=== PATIENT | male | born 1945 | race Caucasian/White ===

== ENCOUNTER 2020-11-27 10:00 | Inpatient (IN) ==
[~2020-11-27 10:00] MED LIST: ASPIRIN 325 MG TABLET PO ONE; DIAZEPAM 5 MG TABLET PO ONE; MAGNESIUM SULF RIDER 2 GM/50 ML PREMIX IV PRN; POTASSIUM CHLORIDE RIDER 10 MEQ/100 ML PREMIX IV PRN; diphenhydrAMINE CAP 25 MG CAPSULE PO ONE
[2020-11-27 10:46] LABS: PT Patient Result 11.4 SECS (10.5-12.0)
[2020-11-27 10:50] LABS: Albumin 3.6 G/DL (3.4-5.0); Bilirubin,Total 0.5 MG/DL (0.20-1.00); Calcium 8.9 MG/DL (8.5-10.1); Osmolality,Calculated 281.4 MOS/KG (273-304); Potassium 4.3 MMOL/L (3.5-5.1); Total Protein 7.8 G/DL (6.4-8.2)
[2020-11-27] MEDS ORDERED: diphenhydrAMINE CAP 25 MG CAPSULE ONE (11:00)
[2020-11-27] MEDS ORDERED: DIAZEPAM 5 MG TABLET ONE (11:00)
[2020-11-27] MEDS ORDERED: ASPIRIN 325 MG TABLET ONE (11:01)
[2020-11-27] MEDS: SODIUM CHLORIDE 0.9% 1,000 ML IV SCH ×2 (11:09→19:35)
[2020-11-27] MEDS ORDERED: HEPARIN/NACL 0.9% 2 UNITS/ML 3,000 UNIT/1,500 ML BAG IV ONE (11:27)
[2020-11-27] MEDS ORDERED: LIDOCAINE 1% 20 ML VIAL ONE (11:27)
[2020-11-27] MEDS ORDERED: fentaNYL 100 MCG/2 ML VIAL ONE (12:07)
[2020-11-27] MEDS ORDERED: MIDAZOLAM 2 MG/2 ML VIAL ONE (12:07)
[2020-11-27] MEDS ORDERED: DEXTROSE 50% 25 GM/50 ML VIAL IV PRN (12:58)
[2020-11-27] MEDS ORDERED: GLUCAGON 1 MG VIAL IM PRN (12:58)
[2020-11-27] MEDS: DICLOFENAC SODIUM 75 MG TABLET PO SCH (21:43)
[2020-11-27] MEDS: SERTRALINE 50 MG TABLET PO SCH (21:44)
[2020-11-28 07:01] LABS: Basophils % 0.4 % (0.0-0.8); Eosinophils # 0.2 10*3/uL (0.0-0.87); Eosinophils % 3.1 % (0.00-10.9); Hematocrit 39.3 VOL% (42.0-52.0); Hemoglobin 12.1 GM/DL (14.0-18.0); Immature Granulocytes % 0.3 %; Immature Granulocytes Absolute 0.02 #; Lymphocytes # 1.2 10*3/uL (1.4-4.0); Lymphocytes % 16.9 % (21.2-54.2); Mean Corpuscular HGB Conc 30.8 GM/DL (32-36); Mean Corpuscular Volume 94.9 FL (87-102); Mean Platelet Volume 10.6 FL (9.6-12.0); Monocytes % 7.8 % (1.7-12.7); Neutrophils % 71.5 % (38.7-73.9); Platelet Count 183 T/CUMM (130-400); Red Blood Count 4.14 MC/CUMM (3.8-5.5); Red Cell Distribution Width 15.9 % (9.3-17.3); White Blood Count 7.2 T/CUMM (4-12)
[2020-11-28 07:32] LABS: Calcium 8.2 MG/DL (8.5-10.1); Osmolality,Calculated 282.3 MOS/KG (273-304); Potassium 4.4 MMOL/L (3.5-5.1)
[2020-11-28] MEDS: METOPROLOL SUCCINATE XL 50 MG TABLET PO SCH (08:44)
[2020-11-28] MEDS: DICLOFENAC SODIUM 75 MG TABLET PO SCH ×2 (08:44→20:07)
[2020-11-28] MEDS: FUROSEMIDE 40 MG/4 ML VIAL IV SCH ×2 (08:45→16:42)
[2020-11-28] MEDS ORDERED: GLUCAGON 1 MG VIAL IM PRN (09:05)
[2020-11-28] MEDS ORDERED: DEXTROSE 50% 25 GM/50 ML VIAL IV PRN (09:05)
[2020-11-28] MEDS ORDERED: SODIUM CHLORIDE 0.9% 1,000 ML IV SCH (09:30)
[2020-11-28] MEDS: SODIUM CHLORIDE 0.9% 1,000 ML IV SCH (11:15)
[2020-11-28] MEDS: ASPIRIN EC 81 MG TABLET PO SCH (20:07)
[2020-11-28] MEDS: SERTRALINE 50 MG TABLET PO SCH (20:07)
[2020-11-28] MEDS: ATORVASTATIN 20 MG TABLET PO SCH (20:07)
[2020-11-28] MEDS: CHLORHEXIDINE 0.12% ORAL RINSE 60 ML BOTTLE SWISH/SPIT SCH (20:08)
[2020-11-29 04:54] LABS: ABG Base Excess 1.7 MMOL/L (-2.5-2.5); ABG HCO3 25.9 MMOL/L (20-26); ABG PCO2 38.7 MM HG (35-48); ABG PH 7.434 (7.35-7.45); ABG PO2 98.6 MM HG (80-95); ABG TCO2 22.9 MMOL/L (23-27)
[2020-11-29 05:24] LABS: Basophils % 0.5 % (0.0-0.8); Eosinophils # 0.3 10*3/uL (0.0-0.87); Eosinophils % 3.1 % (0.00-10.9); Hematocrit 39.5 VOL% (42.0-52.0); Immature Granulocytes % 0.4 %; Immature Granulocytes Absolute 0.03 #; Lymphocytes # 1.1 10*3/uL (1.4-4.0); Lymphocytes % 13.8 % (21.2-54.2); Mean Corpuscular HGB Conc 30.4 GM/DL (32-36); Mean Platelet Volume 10.8 FL (9.6-12.0); Neutrophils % 74.2 % (38.7-73.9); Platelet Count 183 T/CUMM (130-400); Red Cell Distribution Width 15.9 % (9.3-17.3); White Blood Count 8.3 T/CUMM (4-12)
[2020-11-29 05:50] LABS: Albumin 3.1 G/DL (3.4-5.0); Bilirubin,Total 0.7 MG/DL (0.20-1.00); Calcium 8.5 MG/DL (8.5-10.1); Potassium 5.5 MMOL/L (3.5-5.1); Total Protein 6.8 G/DL (6.4-8.2)
[2020-11-29] MEDS: DICLOFENAC SODIUM 75 MG TABLET PO SCH ×2 (08:30→20:32)
[2020-11-29] MEDS: CHLORHEXIDINE 0.12% ORAL RINSE 60 ML BOTTLE SWISH/SPIT SCH ×2 (08:30→20:34)
[2020-11-29] MEDS: FUROSEMIDE 40 MG/4 ML VIAL IV SCH ×2 (08:30→16:15)
[2020-11-29] MEDS: METOPROLOL SUCCINATE XL 50 MG TABLET PO SCH (08:30)
[2020-11-29] MEDS ORDERED: SODIUM POLYSTYRENE SULFATE 15 GM/60 ML BOTTLE PO STA (09:01)
[2020-11-29] MEDS: SERTRALINE 50 MG TABLET PO SCH (20:31)
[2020-11-29] MEDS: ATORVASTATIN 20 MG TABLET PO SCH (20:31)
[2020-11-29] MEDS: ASPIRIN EC 81 MG TABLET PO SCH (20:32)
[2020-11-30 06:25] LABS: Calcium 8.4 MG/DL (8.5-10.1); Osmolality,Calculated 282.5 MOS/KG (273-304); Potassium 3.8 MMOL/L (3.5-5.1)
[2020-11-30] MEDS: FUROSEMIDE 40 MG/4 ML VIAL IV SCH ×2 (08:11→17:30)
[2020-11-30] MEDS: CHLORHEXIDINE 0.12% ORAL RINSE 60 ML BOTTLE SWISH/SPIT SCH ×2 (08:11→21:13)
[2020-11-30] MEDS: METOPROLOL SUCCINATE XL 50 MG TABLET PO SCH (08:11)
[2020-11-30] MEDS: DICLOFENAC SODIUM 75 MG TABLET PO SCH ×2 (08:11→21:16)
[2020-11-30] MEDS ORDERED: CEFUROXIME INJ 1,500 MG in SODIUM CHLORIDE 0.9% 100 ML IV ONE (09:05)
[2020-11-30] MEDS ORDERED: DIAZEPAM 5 MG TABLET PO ONE (10:03)
[2020-11-30] MEDS ORDERED: PANTOPRAZOLE 40 MG TABLET PO ONE (10:03)
[2020-11-30] MEDS: CHLORHEXIDINE 4% SOLN 118 ML BOTTLE TOP SCH ×2 (15:15→21:14)
[2020-11-30] MEDS: SERTRALINE 50 MG TABLET PO SCH (21:12)
[2020-11-30] MEDS: ATORVASTATIN 20 MG TABLET PO SCH (21:12)
[2020-11-30] MEDS: ASPIRIN EC 81 MG TABLET PO SCH (21:12)
[2020-12-01] MEDS ORDERED: PAPAVERINE 60 MG/2 ML VIAL ONE (05:27)
[2020-12-01] MEDS ORDERED: VANCOMYCIN 1,000 MG VIAL ONE ×2 (05:27→07:32)
[2020-12-01] MEDS ORDERED: VANCOMYCIN 500 MG VIAL ONE (05:27)
[2020-12-01] MEDS ORDERED: HEPARIN/NACL 0.9% 2 UNITS/ML 1,000 UNIT/500 ML BAG IV ONE (06:00)
[2020-12-01] MEDS ORDERED: ETOMIDATE 40 MG/20 ML VIAL IV ONE (06:00)
[2020-12-01] MEDS ORDERED: CEFUROXIME INJ 1,500 MG in SODIUM CHLORIDE 0.9% 100 ML IV ONE ×2 (06:00→08:00)
[2020-12-01] MEDS ORDERED: SODIUM CHLORIDE 0.9% 1,000 ML IV ONE (06:00)
[2020-12-01] MEDS ORDERED: MINERAL OIL/PETROLATUM OPH OINT 3.5 GM TUBE ONE (06:00)
[2020-12-01] MEDS ORDERED: PANTOPRAZOLE 40 MG TABLET PO ONE (06:00)
[2020-12-01] MEDS ORDERED: SODIUM CHLORIDE 0.9% 250 ML IV ONE (06:00)
[2020-12-01] MEDS ORDERED: AMINOCAPROIC ACID 5,000 MG/20 ML VIAL ONE (06:00)
[2020-12-01] MEDS ORDERED: DIAZEPAM 5 MG TABLET PO ONE (06:00)
[2020-12-01] MEDS ORDERED: LIDOCAINE 2% 5 ML VIAL ONE ×2 (06:00→10:47)
[2020-12-01] MEDS ORDERED: SEVOFLURANE 1 UNIT/15 MINUTE INH ONE (06:04)
[2020-12-01 06:06] LABS: Calcium 8.6 MG/DL (8.5-10.1); Osmolality,Calculated 284.4 MOS/KG (273-304); Potassium 3.6 MMOL/L (3.5-5.1)
[2020-12-01] MEDS ORDERED: SUFentanil 250 MCG/5 ML AMP ONE ×2 (06:06→08:03)
[2020-12-01] MEDS ORDERED: CALCIUM CHLORIDE 1,000 MG/10 ML VIAL IV ONE ×2 (06:07→10:55)
[2020-12-01] MEDS ORDERED: FAMOTIDINE 20 MG/2 ML VIAL IV ONE (06:13)
[2020-12-01 07:47] LABS: ABG Oxygen Saturation 99.6 % (95-100); ABG PCO2 39.6 MM HG (35-48); ABG PH 7.458 (7.35-7.45); ABG TCO2 23.8 MMOL/L (23-27); Glucose Heart Surgery 114 MG/DL (74-106); Hematocrit Heart Surgery 44.9 PERCENT (42-52); Hemoglobin Heart Surgery 14.6 G/DL (14.0-18.0); Ionized Calcium Arterial 1.11 MMOL/L (1.21-1.46); PCO2 Patient Temp Arterial 39.6 MMHG; PH Patient Temp Arterial 7.458; Patient Temperature 37 CELCIUS; Potassium Heart/CVR 3.5 MMOL/L (3.5-5.1); Sodium Heart/CVR 141 MMOL/L (135-145)
[2020-12-01 07:59] LABS: Bilirubin,Urine Negative (Negative); Blood, Urine Negative (Negative); Glucose,Urine (UA) Negative (Negative); Hyaline Casts,Urine 1 /LPF (0-3); Ketones,Urine Negative (Negative); Mucus,Urine Occasional /LPF (Occasional); Nitrite,Urine Negative (Negative); Protein,Urine Negative; RBC,Urine 2 /HPF (0-4); Squamous Epithelial Cell,Urine Occasional /HPF (0-10); Urine Appearance CLEAR (Clear); Urine Color Yellow (Yellow); Urine Specific Gravity 1.014 (1.001-1.035); Urine Urobilinogen < 2.0 EU/DL (0.2-1.0)
[2020-12-01] MEDS: FUROSEMIDE 40 MG/4 ML VIAL IV SCH (08:00)
[2020-12-01] MEDS ORDERED: SODIUM BICARBONATE 50 MEQ/50 ML VIAL IV ONE ×2 (08:29→10:48)
[2020-12-01] MEDS ORDERED: CALCIUM CHLORIDE 1,000 MG/10 ML SYRINGE IV ONE (08:30)
[2020-12-01] MEDS ORDERED: POTASSIUM CHLORIDE RIDER 20 MEQ/100 ML PREMIX IV ONE (08:30)
[2020-12-01] MEDS ORDERED: PHENYLEPHRINE DRIP 0 MG/0 ML PREMIX IV ONE (08:30)
[2020-12-01] MEDS ORDERED: NITROPRUSSIDE 50 MG/2 ML VIAL ONE (08:30)
[2020-12-01] MEDS ORDERED: propofoL 200 MG/20 ML VIAL IV ONE (08:37)
[2020-12-01] MEDS: METOPROLOL SUCCINATE XL 50 MG TABLET PO SCH (09:03)
[2020-12-01] MEDS: CHLORHEXIDINE 4% SOLN 118 ML BOTTLE TOP SCH (09:03)
[2020-12-01] MEDS: DICLOFENAC SODIUM 75 MG TABLET PO SCH (09:03)
[2020-12-01] MEDS: CHLORHEXIDINE 0.12% ORAL RINSE 60 ML BOTTLE SWISH/SPIT SCH ×2 (09:03→21:55)
[2020-12-01 09:04] LABS: Hematocrit Heart Surgery 27.7 PERCENT (42-52); Hemoglobin Heart Surgery 8.9 G/DL (14.0-18.0); PCO2 Patient Temp Venous 37.9 MM HG; PH Patient Temp Venous 7.472; PO2 Patient Temp Venous 46.3 MM HG; Potassium Heart/CVR 3.9 MMOL/L (3.5-5.1); VBG Base Excess 4.1 MEQ/L (0-4); VBG HCO3 27.8 MEQ/L (24-28); VBG Oxygen Saturation 83.2 %; VBG PCO2 41.7 MMHG (41-51); VBG PH 7.443; VBG Total CO2 26.3 MMOL/L
[2020-12-01 09:49] LABS: Hematocrit Heart Surgery 28.6 PERCENT (42-52); Hemoglobin Heart Surgery 9.2 G/DL (14.0-18.0); PCO2 Patient Temp Venous 27.8 MM HG; PH Patient Temp Venous 7.573; PO2 Patient Temp Venous 30.9 MM HG; Potassium Heart/CVR 3.9 MMOL/L (3.5-5.1); VBG Base Excess 4.3 MEQ/L (0-4); VBG HCO3 28.1 MEQ/L (24-28); VBG Oxygen Saturation 81.9 %; VBG PCO2 39.1 MMHG (41-51); VBG PH 7.468; VBG PO2 49.9 MMHG (17-40)
[2020-12-01] MEDS ORDERED: diphenhydrAMINE 50 MG/1 ML VIAL ONE (09:49)
[2020-12-01 10:19] LABS: Hemoglobin Heart Surgery 9.4 G/DL (14.0-18.0); PCO2 Patient Temp Venous 36.1 MM HG; PH Patient Temp Venous 7.492; PO2 Patient Temp Venous 39.7 MM HG; Potassium Heart/CVR 4.7 MMOL/L (3.5-5.1); VBG Base Excess 4.3 MEQ/L (0-4); VBG HCO3 27.8 MEQ/L (24-28); VBG Oxygen Saturation 69.8 %; VBG PCO2 36.1 MMHG (41-51); VBG PH 7.492; VBG PO2 39.7 MMHG (17-40); VBG Total CO2 25.4 MMOL/L
[2020-12-01] MEDS ORDERED: DEXTROSE 5% KCL 20 MEQ 20 MEQ/1,000 ML BAG IV ONE (10:47)
[2020-12-01] MEDS ORDERED: MAGNESIUM SULFATE 5 GM/10 ML VIAL IV ONE (10:47)
[2020-12-01] MEDS ORDERED: ALBUMIN 25% 25 GM/100 ML VIAL IV ONE (10:47)
[2020-12-01] MEDS ORDERED: methylPREDNISolone SOD SUC 1,000 MG/8 ML VIAL ONE (10:47)
[2020-12-01] MEDS ORDERED: MANNITOL 100 GM/500 ML BAG IV ONE (10:47)
[2020-12-01] MEDS ORDERED: POTASSIUM CHLORIDE 20 MEQ/10 ML VIAL ONE (10:48)
[2020-12-01] MEDS ORDERED: PROTAMINE SULFATE 50 MG/5 ML VIAL IV ONE ×2 (10:48→12:25)
[2020-12-01] MEDS ORDERED: HEPARIN 10,000 UNIT/10 ML VIAL ONE (10:48)
[2020-12-01] MEDS ORDERED: PROTAMINE SULFATE 250 MG/25 ML VIAL IV ONE (10:48)
[2020-12-01] MEDS ORDERED: FUROSEMIDE 20 MG/2 ML VIAL ONE (10:48)
[2020-12-01 10:57] LABS: ABG Base Excess 1.5 MMOL/L (-2.5-2.5); ABG HCO3 25.8 MMOL/L (20-26); ABG Oxygen Saturation 99.5 % (95-100); ABG PCO2 38.8 MM HG (35-48); ABG TCO2 23.5 MMOL/L (23-27); Glucose Heart Surgery 175 MG/DL (74-106); Hematocrit Heart Surgery 29.8 PERCENT (42-52); Hemoglobin Heart Surgery 9.6 G/DL (14.0-18.0); Ionized Calcium Arterial 1.24 MMOL/L (1.21-1.46); PCO2 Patient Temp Arterial 38.8 MMHG; Patient Temperature 37 CELCIUS; Potassium Heart/CVR 3.8 MMOL/L (3.5-5.1); Sodium Heart/CVR 136 MMOL/L (135-145)
[2020-12-01] MEDS ORDERED: PHENYLEPHRINE DRIP 40 MG/250 ML PREMIX IV ONE (11:20)
[2020-12-01] MEDS ORDERED: INSULIN REGULAR 100 UNIT/ML IV ONE (11:47)
[2020-12-01] MEDS ORDERED: DEXTROSE 50% 25 GM/50 ML VIAL IV PRN ×2 (11:47)
[2020-12-01] MEDS ORDERED: CHLORHEXIDINE 4% SOLN 118 ML BOTTLE TOP PRN (11:47)
[2020-12-01] MEDS ORDERED: NITROPRUSSIDE 100 MG in DEXTROSE 5% 250 ML IV PRN (11:47)
[2020-12-01] MEDS ORDERED: MORPHINE 10 MG/1 ML VIAL IV PRN (11:47)
[2020-12-01] MEDS ORDERED: CALCIUM CHLORIDE 1,000 MG/10 ML SYRINGE IV PRN (11:47)
[2020-12-01] MEDS ORDERED: INSULIN REGULAR DRIP 100 ML IV SCH (11:47)
[2020-12-01] MEDS ORDERED: MAGNESIUM SULF RIDER 2 GM/50 ML PREMIX IV PRN (11:47)
[2020-12-01] MEDS ORDERED: MIDAZOLAM 10 MG/2 ML VIAL IV PRN (11:47)
[2020-12-01] MEDS ORDERED: MAGNESIUM SULF RIDER 4 GM/100 ML PREMIX IV PRN (11:47)
[2020-12-01] MEDS ORDERED: ONDANSETRON 4 MG/2 ML VIAL IV PRN (11:47)
[2020-12-01] MEDS ORDERED: INSULIN REGULAR 100 UNIT/ML IV PRN (11:47)
[2020-12-01] MEDS ORDERED: ACETAMINOPHEN 650 MG SUPP RECTAL PRN (11:47)
[2020-12-01] MEDS ORDERED: VECURONIUM 10 MG VIAL IV PRN ×2 (11:47)
[2020-12-01] MEDS ORDERED: LACTATED RINGERS 250 ML IV PRN (11:47)
[2020-12-01] MEDS ORDERED: SODIUM CHLORIDE 0.45% 1,000 ML IV SCH ×2 (11:47)
[2020-12-01] MEDS ORDERED: MIDAZOLAM 2 MG/2 ML VIAL IV PRN (11:47)
[2020-12-01] MEDS ORDERED: THROMBIN TOPICAL (RECOMBINANT) 5,000 UNIT VIAL TOP ONE (11:56)
[2020-12-01] MEDS: PHENYLEPHRINE DRIP 40 MG/250 ML PREMIX IV PRN (12:10)
[2020-12-01 12:29] LABS: Basophils % 0.2 % (0.0-0.8); Eosinophils # 0.1 10*3/uL (0.0-0.87); Eosinophils % 0.7 % (0.00-10.9); Hematocrit 31.9 VOL% (42.0-52.0); Hemoglobin 10.3 GM/DL (14.0-18.0); Immature Granulocytes % 1.2 %; Immature Granulocytes Absolute 0.14 #; Lymphocytes # 0.5 10*3/uL (1.4-4.0); Lymphocytes % 4.4 % (21.2-54.2); Mean Corpuscular HGB Conc 32.3 GM/DL (32-36); Mean Corpuscular Volume 89.6 FL (87-102); Mean Platelet Volume 10.8 FL (9.6-12.0); Monocytes % 5.4 % (1.7-12.7); Neutrophils % 88.1 % (38.7-73.9); Platelet Count 182 T/CUMM (130-400); Red Blood Count 3.56 MC/CUMM (3.8-5.5); Red Cell Distribution Width 15.9 % (9.3-17.3); White Blood Count 12.1 T/CUMM (4-12)
[2020-12-01 12:35] LABS: ABG Base Excess 1.5 MMOL/L (-2.5-2.5); ABG HCO3 24.9 MMOL/L (20-26); ABG Oxygen Saturation 98.9 % (95-100); ABG PCO2 35.1 MM HG (35-48); ABG PH 7.469 (7.35-7.45); ABG PO2 244.3 MM HG (80-95); Glucose Heart Surgery 137 MG/DL (74-106); Hemoglobin Heart Surgery 10.9 G/DL (14.0-18.0); Potassium Heart/CVR 3.9 MMOL/L (3.5-5.1)
[2020-12-01 12:40] LABS: INR 1.2; PT Patient Result 13.2 SECS (10.5-12.0); Partial Thromboplastin Time 30.8 SECS (23.9-33.8)
[2020-12-01 12:48] LABS: Eosinophils 1 % (0-10); Hypochromasia Slight; Lymphocytes 5 % (20-55); Microcytosis Slight; Platelet Estimate Adequate; Segmented Neutrophils 92 % (50-85); Total Cells Counted 100
[2020-12-01 13:01] LABS: CKMB % 6.4 %
[2020-12-01 13:04] LABS: High Sensitive Troponin I* 4462.7 ng/L (0-78)
[2020-12-01] MEDS: POTASSIUM CHLORIDE RIDER 20 MEQ/100 ML PREMIX IV PRN ×2 (13:05→18:20)
[2020-12-01] MEDS: ALBUMIN 5% 12.5 GM/250 ML VIAL IV PRN ×4 (13:15→20:53)
[2020-12-01 13:20] LABS: Bilirubin,Total 1.1 MG/DL (0.20-1.00); Osmolality,Calculated 285.4 MOS/KG (273-304); Potassium 3.9 MMOL/L (3.5-5.1); Total Protein 5.5 G/DL (6.4-8.2)
[2020-12-01] MEDS: POTASSIUM CHLORIDE RIDER 10 MEQ/100 ML PREMIX IV PRN (13:35)
[2020-12-01 14:02] LABS: ABG Base Excess 0.4 MMOL/L (-2.5-2.5); ABG HCO3 24.8 MMOL/L (20-26); ABG Oxygen Saturation 98.6 % (95-100); ABG PCO2 38.5 MM HG (35-48); ABG PH 7.416 (7.35-7.45); ABG TCO2 22.4 MMOL/L (23-27); Glucose Heart Surgery 151 MG/DL (74-106); Hematocrit Heart Surgery 31.4 PERCENT (42-52); Hemoglobin Heart Surgery 10.2 G/DL (14.0-18.0); Potassium Heart/CVR 4.6 MMOL/L (3.5-5.1)
[2020-12-01 15:00] LABS: ABG Base Excess 0.4 MMOL/L (-2.5-2.5); ABG HCO3 24.8 MMOL/L (20-26); ABG Oxygen Saturation 96.5 % (95-100); ABG PCO2 39.2 MM HG (35-48); ABG PH 7.412 (7.35-7.45); ABG PO2 95.4 MM HG (80-95); ABG TCO2 22.7 MMOL/L (23-27); Glucose Heart Surgery 161 MG/DL (74-106); Hematocrit Heart Surgery 30.9 PERCENT (42-52); Potassium Heart/CVR 4.2 MMOL/L (3.5-5.1)
[2020-12-01] MEDS ORDERED: FUROSEMIDE 40 MG/4 ML VIAL IV ONE (16:00)
[2020-12-01] MEDS: INSULIN LISPRO 100 UNIT/ML SUBCUT SCH ×2 (16:05→20:06)
[2020-12-01] MEDS: CEFUROXIME INJ 1,500 MG in SODIUM CHLORIDE 0.9% 100 ML IV SCH (18:15)
[2020-12-01 18:16] LABS: ABG Base Excess 0.8 MMOL/L (-2.5-2.5); ABG HCO3 25.1 MMOL/L (20-26); ABG Oxygen Saturation 97.2 % (95-100); ABG PCO2 40.2 MM HG (35-48); ABG PH 7.409 (7.35-7.45); ABG TCO2 22.6 MMOL/L (23-27); Glucose Heart Surgery 162 MG/DL (74-106); Hemoglobin Heart Surgery 11.7 G/DL (14.0-18.0); Potassium Heart/CVR 4.1 MMOL/L (3.5-5.1)
[2020-12-01 19:24] LABS: ABG Base Excess 0.3 MMOL/L (-2.5-2.5); ABG HCO3 24.7 MMOL/L (20-26); ABG Oxygen Saturation 97.6 % (95-100); ABG PCO2 39.5 MM HG (35-48); ABG PH 7.408 (7.35-7.45); ABG TCO2 22.7 MMOL/L (23-27); Glucose Heart Surgery 159 MG/DL (74-106); Hematocrit Heart Surgery 30.6 PERCENT (42-52); Hemoglobin Heart Surgery 9.9 G/DL (14.0-18.0); Potassium Heart/CVR 4.7 MMOL/L (3.5-5.1)
[2020-12-01 20:09] LABS: High Sensitive Troponin I* 4316.3 ng/L (0-78)
[2020-12-01 23:32] LABS: ABG Base Excess -0.5 MMOL/L (-2.5-2.5); ABG Oxygen Saturation 97.5 % (95-100); ABG PCO2 39.2 MM HG (35-48); ABG PH 7.398 (7.35-7.45); ABG TCO2 22.3 MMOL/L (23-27); Glucose Heart Surgery 151 MG/DL (74-106); Hematocrit Heart Surgery 27.5 PERCENT (42-52); Hemoglobin Heart Surgery 8.9 G/DL (14.0-18.0); Potassium Heart/CVR 4.2 MMOL/L (3.5-5.1)
[2020-12-02] MEDS: INSULIN LISPRO 100 UNIT/ML SUBCUT SCH ×6 (00:20→20:11)
[2020-12-02] MEDS: ALBUMIN 5% 12.5 GM/250 ML VIAL IV PRN ×2 (01:40→09:25)
[2020-12-02 02:37] LABS: ABG Base Excess -1.7 MMOL/L (-2.5-2.5); ABG Oxygen Saturation 98.3 % (95-100); ABG PCO2 38.8 MM HG (35-48); ABG PH 7.383 (7.35-7.45); ABG TCO2 21.2 MMOL/L (23-27); Glucose Heart Surgery 152 MG/DL (74-106); Hematocrit Heart Surgery 29.2 PERCENT (42-52); Hemoglobin Heart Surgery 9.4 G/DL (14.0-18.0); Potassium Heart/CVR 4.2 MMOL/L (3.5-5.1)
[2020-12-02] MEDS: POTASSIUM CHLORIDE RIDER 10 MEQ/100 ML PREMIX IV PRN (03:08)
[2020-12-02 03:20] LABS: ABG Base Excess -1.1 MMOL/L (-2.5-2.5); ABG HCO3 23.5 MMOL/L (20-26); ABG Oxygen Saturation 97.9 % (95-100); ABG PCO2 42.7 MM HG (35-48); ABG PH 7.362 (7.35-7.45); ABG TCO2 22.3 MMOL/L (23-27); Glucose Heart Surgery 149 MG/DL (74-106); Hematocrit Heart Surgery 29.4 PERCENT (42-52); Hemoglobin Heart Surgery 9.5 G/DL (14.0-18.0); Potassium Heart/CVR 4.7 MMOL/L (3.5-5.1)
[2020-12-02 04:12] LABS: ABG Base Excess -1.9 MMOL/L (-2.5-2.5); ABG HCO3 22.8 MMOL/L (20-26); ABG Oxygen Saturation 96.8 % (95-100); ABG PCO2 40.9 MM HG (35-48); ABG PH 7.364 (7.35-7.45); ABG PO2 98.9 MM HG (80-95); ABG TCO2 21.4 MMOL/L (23-27); Glucose Heart Surgery 154 MG/DL (74-106); Hematocrit Heart Surgery 30.3 PERCENT (42-52); Hemoglobin Heart Surgery 9.8 G/DL (14.0-18.0); Potassium Heart/CVR 4.6 MMOL/L (3.5-5.1)
[2020-12-02 04:14] LABS: Basophils % 0.1 % (0.0-0.8); Hematocrit 30.5 VOL% (42.0-52.0); Hemoglobin 9.8 GM/DL (14.0-18.0); Immature Granulocytes % 0.4 %; Immature Granulocytes Absolute 0.05 #; Lymphocytes # 0.4 10*3/uL (1.4-4.0); Lymphocytes % 2.5 % (21.2-54.2); Mean Corpuscular HGB Conc 32.1 GM/DL (32-36); Mean Corpuscular Volume 91.9 FL (87-102); Mean Platelet Volume 11.3 FL (9.6-12.0); Monocytes % 2.9 % (1.7-12.7); Neutrophils % 94.1 % (38.7-73.9); Platelet Count 180 T/CUMM (130-400); Red Blood Count 3.32 MC/CUMM (3.8-5.5); Red Cell Distribution Width 15.9 % (9.3-17.3)
[2020-12-02 04:39] LABS: Hypochromasia 1+; Lymphocytes 2 % (20-55); Microcytosis 1+; Ovalocytes Slight; Platelet Estimate Adequate; Segmented Neutrophils 96 % (50-85); Total Cells Counted 100
[2020-12-02 04:46] LABS: CKMB % 9.4 %
[2020-12-02 04:52] LABS: High Sensitive Troponin I* 5267.2 ng/L (0-78)
[2020-12-02 04:54] LABS: ABG Base Excess -2.9 MMOL/L (-2.5-2.5); ABG Oxygen Saturation 95.4 % (95-100); ABG PCO2 41.8 MM HG (35-48); ABG PH 7.343 (7.35-7.45); ABG PO2 90.6 MM HG (80-95); ABG TCO2 20.9 MMOL/L (23-27); Glucose Heart Surgery 167 MG/DL (74-106); Hematocrit Heart Surgery 29.2 PERCENT (42-52); Hemoglobin Heart Surgery 9.4 G/DL (14.0-18.0); Potassium Heart/CVR 4.4 MMOL/L (3.5-5.1)
[2020-12-02] MEDS ORDERED: FUROSEMIDE 40 MG/4 ML VIAL IV ONE (04:56)
[2020-12-02] MEDS ORDERED: FUROSEMIDE 40 MG/4 ML VIAL ONE (04:59)
[2020-12-02 05:01] LABS: Albumin 3.9 G/DL (3.4-5.0); Bilirubin,Direct 0.31 MG/DL (0.0-0.20); Bilirubin,Total 1.3 MG/DL (0.20-1.00); Calcium 8.7 MG/DL (8.5-10.1); Osmolality,Calculated 291.1 MOS/KG (273-304); Potassium 4.7 MMOL/L (3.5-5.1); Total Protein 6.3 G/DL (6.4-8.2)
[2020-12-02] MEDS: CEFUROXIME INJ 1,500 MG in SODIUM CHLORIDE 0.9% 100 ML IV SCH ×2 (06:15→18:01)
[2020-12-02] MEDS: PHENYLEPHRINE DRIP 40 MG/250 ML PREMIX IV PRN (07:40)
[2020-12-02] MEDS: ASPIRIN 325 MG TABLET PO SCH (09:15)
[2020-12-02] MEDS: PANTOPRAZOLE 40 MG TABLET PO SCH (09:15)
[2020-12-02] MEDS: VITAMIN E 400 UNIT CAPSULE PO SCH (09:15)
[2020-12-02] MEDS ORDERED: ONDANSETRON 4 MG/2 ML VIAL IV PRN (09:19)
[2020-12-02] MEDS ORDERED: MAGNESIUM SULF RIDER 2 GM/50 ML PREMIX IV PRN (09:19)
[2020-12-02] MEDS ORDERED: MAGNESIUM SULF RIDER 4 GM/100 ML PREMIX IV PRN (09:19)
[2020-12-02] MEDS ORDERED: DEXTROSE 50% 25 GM/50 ML VIAL IV PRN (09:19)
[2020-12-02] MEDS ORDERED: POTASSIUM CHLORIDE 20 MEQ TABLET PO PRN (09:19)
[2020-12-02] MEDS ORDERED: ACETAMINOPHEN 325 MG TABLET PO PRN (09:19)
[2020-12-02] MEDS ORDERED: ALUMINUM/MAGNES/SIMETH MAX STR 30 ML UDCUP PO PRN (09:19)
[2020-12-02] MEDS ORDERED: MAGNESIUM HYDROXIDE SUSP 30 ML UDCUP PO PRN (09:19)
[2020-12-02] MEDS ORDERED: ZALEPLON 5 MG CAPSULE PO PRN (09:19)
[2020-12-02] MEDS ORDERED: GLUCAGON 1 MG VIAL IM PRN (09:19)
[2020-12-02] MEDS: CHLORHEXIDINE 0.12% ORAL RINSE 60 ML BOTTLE SWISH/SPIT SCH ×3 (09:20→20:35)
[2020-12-02] MEDS ORDERED: SODIUM CHLOR 0.45% KCL 20 MEQ 20 MEQ/1,000 ML BAG IV SCH (09:30)
[2020-12-02 14:18] LABS: CKMB % 6.2 %
[2020-12-02] MEDS: ATORVASTATIN 20 MG TABLET PO SCH (20:34)
[2020-12-02] MEDS: SERTRALINE 50 MG TABLET PO SCH (20:34)
[2020-12-02] MEDS: ASCORBIC ACID 500 MG TABLET PO SCH (20:35)
[2020-12-02] MEDS: CHOLECALCIFEROL 400 UNIT TABLET PO SCH (20:35)
[2020-12-03] MEDS: INSULIN LISPRO 100 UNIT/ML SUBCUT SCH ×6 (00:18→20:32)
[2020-12-03 04:56] LABS: Basophils % 0.1 % (0.0-0.8); Hematocrit 27.1 VOL% (42.0-52.0); Hemoglobin 8.5 GM/DL (14.0-18.0); Immature Granulocytes % 0.6 %; Lymphocytes # 0.6 10*3/uL (1.4-4.0); Lymphocytes % 3.9 % (21.2-54.2); Mean Corpuscular HGB Conc 31.4 GM/DL (32-36); Mean Corpuscular Volume 95.8 FL (87-102); Mean Platelet Volume 11.5 FL (9.6-12.0); Neutrophils % 89.4 % (38.7-73.9); Platelet Count 143 T/CUMM (130-400); Red Blood Count 2.83 MC/CUMM (3.8-5.5); Red Cell Distribution Width 16.6 % (9.3-17.3)
[2020-12-03 05:19] LABS: Hypochromasia 1+; Lymphocytes 6 % (20-55); Microcytosis 1+; Platelet Estimate Adequate; Segmented Neutrophils 88 % (50-85); Total Cells Counted 100
[2020-12-03 05:27] LABS: Albumin 3.5 G/DL (3.4-5.0); Bilirubin,Direct 0.17 MG/DL (0.0-0.20); Bilirubin,Total 0.6 MG/DL (0.20-1.00); Calcium 8.3 MG/DL (8.5-10.1); Osmolality,Calculated 290.5 MOS/KG (273-304); Potassium 4.1 MMOL/L (3.5-5.1); Total Protein 6.5 G/DL (6.4-8.2)
[2020-12-03] MEDS ORDERED: FUROSEMIDE 40 MG/4 ML VIAL IV ONE (06:00)
[2020-12-03 06:51] LABS: Albumin 3.5 G/DL (3.4-5.0); Bilirubin,Direct 0.17 MG/DL (0.0-0.20); Bilirubin,Indirect 0.3 MG/DL (0.0-1.0); Bilirubin,Total 0.5 MG/DL (0.20-1.00); CKMB % 4.5 %; Total Protein 6.5 G/DL (6.4-8.2)
[2020-12-03 06:52] LABS: High Sensitive Troponin I* 3938.2 ng/L (0-78)
[2020-12-03] MEDS: DOCUSATE SODIUM 100 MG CAPSULE PO SCH (09:30)
[2020-12-03] MEDS: VITAMIN E 400 UNIT CAPSULE PO SCH (09:30)
[2020-12-03] MEDS: ASPIRIN 325 MG TABLET PO SCH (09:30)
[2020-12-03] MEDS: PANTOPRAZOLE 40 MG TABLET PO SCH (09:30)
[2020-12-03] MEDS: ASCORBIC ACID 500 MG TABLET PO SCH ×2 (09:30→20:32)
[2020-12-03] MEDS: FERROUS SULFATE 325 MG TABLET PO SCH (09:30)
[2020-12-03] MEDS: CHLORHEXIDINE 0.12% ORAL RINSE 60 ML BOTTLE SWISH/SPIT SCH ×4 (09:31→22:05)
[2020-12-03] MEDS: ATORVASTATIN 20 MG TABLET PO SCH (20:31)
[2020-12-03] MEDS: SERTRALINE 50 MG TABLET PO SCH (20:31)
[2020-12-03] MEDS: AMIODARONE 200 MG TABLET PO SCH (20:31)
[2020-12-03] MEDS: CHOLECALCIFEROL 400 UNIT TABLET PO SCH (20:31)
[2020-12-03] MEDS: APIXABAN 2.5 MG TABLET PO SCH (20:31)
[2020-12-03] MEDS: oxyCODONE/ACETAMINOPHEN 5-325 MG TABLET PO PRN (21:13)
[2020-12-04] MEDS: INSULIN LISPRO 100 UNIT/ML SUBCUT SCH ×3 (00:12→10:15)
[2020-12-04 05:59] LABS: Basophils % 0.1 % (0.0-0.8); Eosinophils % 0.1 % (0.00-10.9); Hemoglobin 8.5 GM/DL (14.0-18.0); Immature Granulocytes % 0.7 %; Lymphocytes # 0.5 10*3/uL (1.4-4.0); Lymphocytes % 3.8 % (21.2-54.2); Mean Corpuscular HGB Conc 30.4 GM/DL (32-36); Mean Corpuscular Volume 96.6 FL (87-102); Mean Platelet Volume 11.6 FL (9.6-12.0); Monocytes % 6.5 % (1.7-12.7); Neutrophils % 88.8 % (38.7-73.9); Platelet Count 153 T/CUMM (130-400); Red Cell Distribution Width 16.9 % (9.3-17.3)
[2020-12-04 06:22] LABS: Hypochromasia 1+; Lymphocytes 1 % (20-55); Microcytosis 1+; Ovalocytes Slight; Segmented Neutrophils 93 % (50-85); Total Cells Counted 100
[2020-12-04 06:23] LABS: Platelet Estimate Adequate
[2020-12-04 06:29] LABS: Albumin 3.3 G/DL (3.4-5.0); Bilirubin,Direct 0.21 MG/DL (0.0-0.20); Bilirubin,Total 0.8 MG/DL (0.20-1.00); Calcium 8.5 MG/DL (8.5-10.1); Osmolality,Calculated 292.4 MOS/KG (273-304); Potassium 4.1 MMOL/L (3.5-5.1); Total Protein 6.4 G/DL (6.4-8.2)
[2020-12-04 06:30] LABS: Albumin 3.4 G/DL (3.4-5.0); Bilirubin,Direct 0.2 MG/DL (0.0-0.20); Bilirubin,Indirect 0.6 MG/DL (0.0-1.0); Bilirubin,Total 0.8 MG/DL (0.20-1.00); High Sensitive Troponin I* 4482.6 ng/L (0-78); Total Protein 6.4 G/DL (6.4-8.2)
[2020-12-04] MEDS: AMIODARONE 200 MG TABLET PO SCH ×2 (09:43→20:50)
[2020-12-04] MEDS: FERROUS SULFATE 325 MG TABLET PO SCH (09:43)
[2020-12-04] MEDS: FUROSEMIDE 40 MG TABLET PO SCH (09:43)
[2020-12-04] MEDS: PANTOPRAZOLE 40 MG TABLET PO SCH (09:43)
[2020-12-04] MEDS: ASCORBIC ACID 500 MG TABLET PO SCH ×2 (09:43→20:49)
[2020-12-04] MEDS: APIXABAN 2.5 MG TABLET PO SCH ×2 (09:43→20:49)
[2020-12-04] MEDS: DOCUSATE SODIUM 100 MG CAPSULE PO SCH (09:44)
[2020-12-04] MEDS: CHLORHEXIDINE 0.12% ORAL RINSE 60 ML BOTTLE SWISH/SPIT SCH ×4 (09:44→21:18)
[2020-12-04] MEDS: ASPIRIN 325 MG TABLET PO SCH (09:44)
[2020-12-04] MEDS: VITAMIN E 400 UNIT CAPSULE PO SCH (09:44)
[2020-12-04] MEDS: POLYETHYLENE GLYCOL POWDER 17 GM PACK PO SCH (09:48)
[2020-12-04] MEDS ORDERED: FUROSEMIDE 20 MG TABLET PO SCH (19:00)
[2020-12-04] MEDS: ATORVASTATIN 20 MG TABLET PO SCH (20:49)
[2020-12-04] MEDS: CHOLECALCIFEROL 400 UNIT TABLET PO SCH (20:49)
[2020-12-04] MEDS: SERTRALINE 50 MG TABLET PO SCH (20:49)
[2020-12-04] MEDS: oxyCODONE/ACETAMINOPHEN 5-325 MG TABLET PO PRN (22:50)
[2020-12-05 06:49] LABS: Basophils % 0.3 % (0.0-0.8); Eosinophils # 0.2 10*3/uL (0.0-0.87); Hematocrit 28.5 VOL% (42.0-52.0); Hemoglobin 8.7 GM/DL (14.0-18.0); Immature Granulocytes % 0.8 %; Immature Granulocytes Absolute 0.09 #; Lymphocytes # 1.1 10*3/uL (1.4-4.0); Lymphocytes % 9.6 % (21.2-54.2); Mean Corpuscular HGB Conc 30.5 GM/DL (32-36); Mean Corpuscular Volume 95.3 FL (87-102); Mean Platelet Volume 10.7 FL (9.6-12.0); Neutrophils % 80.3 % (38.7-73.9); Platelet Count 174 T/CUMM (130-400); Red Blood Count 2.99 MC/CUMM (3.8-5.5); Red Cell Distribution Width 16.9 % (9.3-17.3); White Blood Count 11.2 T/CUMM (4-12)
[2020-12-05 07:04] LABS: Calcium 8.5 MG/DL (8.5-10.1); Osmolality,Calculated 289.4 MOS/KG (273-304)
[2020-12-05] MEDS ORDERED: LACTULOSE 20 GM/30 ML UDCUP PO PRN (07:56)
[2020-12-05] MEDS ORDERED: LACTULOSE 20 GM/30 ML UDCUP PO ONE (09:00)
[2020-12-05] MEDS: ASCORBIC ACID 500 MG TABLET PO SCH ×2 (09:19→20:54)
[2020-12-05] MEDS: VITAMIN E 400 UNIT CAPSULE PO SCH (09:19)
[2020-12-05] MEDS: ASPIRIN 325 MG TABLET PO SCH (09:20)
[2020-12-05] MEDS: FUROSEMIDE 40 MG TABLET PO SCH (09:20)
[2020-12-05] MEDS: AMIODARONE 200 MG TABLET PO SCH ×2 (09:21→20:56)
[2020-12-05] MEDS: APIXABAN 2.5 MG TABLET PO SCH ×2 (09:21→20:55)
[2020-12-05] MEDS: POLYETHYLENE GLYCOL POWDER 17 GM PACK PO SCH (09:21)
[2020-12-05] MEDS: FERROUS SULFATE 325 MG TABLET PO SCH (09:21)
[2020-12-05] MEDS: PANTOPRAZOLE 40 MG TABLET PO SCH (09:21)
[2020-12-05] MEDS: CHLORHEXIDINE 0.12% ORAL RINSE 60 ML BOTTLE SWISH/SPIT SCH ×4 (09:22→20:55)
[2020-12-05] MEDS: DOCUSATE SODIUM 100 MG CAPSULE PO SCH (09:22)
[2020-12-05] MEDS: METOPROLOL SUCCINATE XL 25 MG TABLET PO SCH (09:25)
[2020-12-05] MEDS: DAPAGLIFLOZIN 10 MG TABLET PO SCH (11:46)
[2020-12-05] MEDS: CHOLECALCIFEROL 400 UNIT TABLET PO SCH (20:54)
[2020-12-05] MEDS: SERTRALINE 50 MG TABLET PO SCH (20:55)
[2020-12-05] MEDS ORDERED: ATORVASTATIN 40 MG TABLET PO SCH (21:00)
[2020-12-06 05:52] LABS: Basophils % 0.3 % (0.0-0.8); Eosinophils # 0.4 10*3/uL (0.0-0.87); Eosinophils % 3.9 % (0.00-10.9); Hematocrit 28.6 VOL% (42.0-52.0); Immature Granulocytes % 0.5 %; Immature Granulocytes Absolute 0.05 #; Lymphocytes # 1.3 10*3/uL (1.4-4.0); Lymphocytes % 11.5 % (21.2-54.2); Mean Corpuscular HGB Conc 31.5 GM/DL (32-36); Mean Corpuscular Volume 95.3 FL (87-102); Monocytes % 8.1 % (1.7-12.7); Neutrophils % 75.7 % (38.7-73.9); Platelet Count 219 T/CUMM (130-400); Red Cell Distribution Width 16.9 % (9.3-17.3)
[2020-12-06 06:03] LABS: Alanine Aminotransferase 30 U/L (16-61); Albumin 3.1 G/DL (3.4-5.0); Alkaline Phosphatase 123 U/L (45-117); Aspartate Amino Transferase 22 U/L (0-37); Bilirubin,Indirect 0.5 MG/DL (0.0-1.0); Blood Urea Nitrogen 36 MG/DL (7-18); Calcium 8.5 MG/DL (8.5-10.1); Carbon Dioxide 27 MMOL/L (21-32); Estimated Glom Filtration Rate 58 ML/MIN; Glucose 91 MG/DL (74-106); Osmolality,Calculated 284.5 MOS/KG (273-304); Potassium 3.8 MMOL/L (3.5-5.1); Sodium 139 MMOL/L (136-145); Total Protein 6.2 G/DL (6.4-8.2)
[2020-12-06] MEDS: POLYETHYLENE GLYCOL POWDER 17 GM PACK PO SCH (09:09)
[2020-12-06] MEDS: DAPAGLIFLOZIN 10 MG TABLET PO SCH (09:10)
[2020-12-06] MEDS: ASCORBIC ACID 500 MG TABLET PO SCH (09:10)
[2020-12-06] MEDS: FERROUS SULFATE 325 MG TABLET PO SCH (09:10)
[2020-12-06] MEDS: DOCUSATE SODIUM 100 MG CAPSULE PO SCH (09:10)
[2020-12-06] MEDS: PANTOPRAZOLE 40 MG TABLET PO SCH (09:10)
[2020-12-06] MEDS: VITAMIN E 400 UNIT CAPSULE PO SCH (09:10)
[2020-12-06] MEDS: CHLORHEXIDINE 0.12% ORAL RINSE 60 ML BOTTLE SWISH/SPIT SCH ×2 (09:11)
[2020-12-06] MEDS: AMIODARONE 200 MG TABLET PO SCH (09:11)
[2020-12-06] MEDS: ASPIRIN 325 MG TABLET PO SCH (09:11)
[2020-12-06] MEDS: METOPROLOL SUCCINATE XL 25 MG TABLET PO SCH (09:11)
[2020-12-06] MEDS: APIXABAN 2.5 MG TABLET PO SCH (09:11)
[2020-12-06 11:18] VITALS: BP 117/71
== END 2020-12-06 12:10 | disposition home or self-care (01) | DRG 233 ==
LOC: N.CL 10:00 → N.TELEN 15:49 → N.CVR 12-01 11:41 → N.TELES 12-02 13:32
PROVIDERS: ADMIT Internal Medicine Cardiovascular Disease; ATTEND Internal Medicine Cardiovascular Disease

== ENCOUNTER 2021-01-15 16:50 | Inpatient (IN) ==
[2021-01-15] MEDS ORDERED: FUROSEMIDE 100 MG/10 ML VIAL IV STA (17:18)
[2021-01-15 17:25] LABS: Basophils # 0.1 10*3/uL (0.0-0.2); Basophils % 0.6 % (0.0-0.8); Eosinophils # 0.4 10*3/uL (0.0-0.87); Eosinophils % 3.6 % (0.00-10.9); Hematocrit 36.1 VOL% (42.0-52.0); Immature Granulocytes % 0.4 %; Immature Granulocytes Absolute 0.04 #; Lymphocytes # 1.2 10*3/uL (1.4-4.0); Lymphocytes % 11.7 % (21.2-54.2); Mean Corpuscular HGB Conc 30.5 GM/DL (32-36); Mean Platelet Volume 10.1 FL (9.6-12.0); Monocytes % 9.7 % (1.7-12.7); Platelet Count 276 T/CUMM (130-400); Red Blood Count 3.76 MC/CUMM (3.8-5.5); Red Cell Distribution Width 17.3 % (9.3-17.3); White Blood Count 9.9 T/CUMM (4-12)
[2021-01-15 17:38] LABS: INR 1.2; Partial Thromboplastin Time 31.5 SECS (23.8-32.1)
[2021-01-15 17:48] LABS: Albumin 3.5 G/DL (3.4-5.0); Bilirubin,Total 0.5 MG/DL (0.20-1.00); Osmolality,Calculated 282.4 MOS/KG (273-304); Potassium 4.2 MMOL/L (3.5-5.1); Total Protein 7.8 G/DL (6.4-8.2)
[2021-01-15] MEDS ORDERED: ENOXAPARIN 100 MG/ML SYRINGE SUBCUT SCH (19:30)
[2021-01-15] MEDS ORDERED: ONDANSETRON 4 MG/2 ML VIAL IV PRN (19:44)
[2021-01-15] MEDS ORDERED: POTASSIUM CHLORIDE 20 MEQ TABLET PO PRN (19:44)
[2021-01-15] MEDS ORDERED: GLUCAGON 1 MG VIAL IM PRN (19:44)
[2021-01-15] MEDS ORDERED: DEXTROSE 50% 25 GM/50 ML VIAL IV PRN (19:44)
[2021-01-15] MEDS ORDERED: ACETAMINOPHEN 325 MG TABLET PO PRN (19:44)
[2021-01-15] MEDS ORDERED: hydrALAZINE 20 MG/1 ML VIAL IV PRN (19:44)
[2021-01-16 01:35] LABS: Basophils # 0.1 10*3/uL (0.0-0.2); Basophils % 0.6 % (0.0-0.8); Eosinophils # 0.4 10*3/uL (0.0-0.87); Eosinophils % 3.6 % (0.00-10.9); Hematocrit 36.6 VOL% (42.0-52.0); Hemoglobin 10.9 GM/DL (14.0-18.0); Immature Granulocytes % 0.2 %; Immature Granulocytes Absolute 0.02 #; Lymphocytes # 1.3 10*3/uL (1.4-4.0); Lymphocytes % 12.7 % (21.2-54.2); Mean Corpuscular HGB Conc 29.8 GM/DL (32-36); Mean Corpuscular Volume 96.6 FL (87-102); Mean Platelet Volume 10.2 FL (9.6-12.0); Monocytes % 9.5 % (1.7-12.7); Neutrophils % 73.4 % (38.7-73.9); Platelet Count 277 T/CUMM (130-400); Red Blood Count 3.79 MC/CUMM (3.8-5.5); Red Cell Distribution Width 17.5 % (9.3-17.3); White Blood Count 10.4 T/CUMM (4-12)
[2021-01-16] MEDS: APIXABAN 2.5 MG TABLET PO SCH ×3 (02:12→23:05)
[2021-01-16 02:15] LABS: Albumin 3.2 G/DL (3.4-5.0); Bilirubin,Total 0.6 MG/DL (0.20-1.00); Calcium 8.9 MG/DL (8.5-10.1); Osmolality,Calculated 281.5 MOS/KG (273-304); Potassium 4.1 MMOL/L (3.5-5.1); Total Protein 7.4 G/DL (6.4-8.2)
[2021-01-16] MEDS: PANTOPRAZOLE 40 MG TABLET PO SCH (09:24)
[2021-01-16] MEDS: VITAMIN E 400 UNIT CAPSULE PO SCH (09:24)
[2021-01-16] MEDS: ASPIRIN EC 81 MG TABLET PO SCH (09:24)
[2021-01-16] MEDS: FUROSEMIDE 40 MG/4 ML VIAL IV SCH ×2 (09:25→16:39)
[2021-01-16] MEDS ORDERED: AMIODARONE INJ 150 MG in DEXTROSE 5% 100 ML IV ONE (14:01)
[2021-01-16] MEDS ORDERED: ALBUTEROL/IPRATROPIUM 3 ML NEB RESP TX PRN (14:04)
[2021-01-16] MEDS ORDERED: AMIODARONE INJ 450 MG in DEXTROSE 5% 241 ML IV SCH (14:30)
[2021-01-16] MEDS ORDERED: METOPROLOL SUCCINATE XL 50 MG TABLET PO SCH (21:00)
[2021-01-16] MEDS: carvediloL 3.125 MG TABLET PO SCH (23:04)
[2021-01-16] MEDS: SERTRALINE 50 MG TABLET PO SCH (23:05)
[2021-01-16] MEDS: ATORVASTATIN 20 MG TABLET PO SCH (23:05)
[2021-01-16] MEDS: CHOLECALCIFEROL 400 UNIT TABLET PO SCH (23:06)
[2021-01-16] MEDS: AMIODARONE INJ 450 MG in DEXTROSE 5% 241 ML IV SCH (23:06)
[2021-01-17 05:39] LABS: Basophils % 0.3 % (0.0-0.8); Eosinophils # 0.4 10*3/uL (0.0-0.87); Eosinophils % 4.6 % (0.00-10.9); Hematocrit 33.7 VOL% (42.0-52.0); Hemoglobin 10.2 GM/DL (14.0-18.0); Immature Granulocytes % 0.3 %; Immature Granulocytes Absolute 0.03 #; Lymphocytes % 11.5 % (21.2-54.2); Mean Corpuscular HGB Conc 30.3 GM/DL (32-36); Mean Corpuscular Volume 94.4 FL (87-102); Mean Platelet Volume 10.5 FL (9.6-12.0); Monocytes % 10.3 % (1.7-12.7); Platelet Count 222 T/CUMM (130-400); Red Blood Count 3.57 MC/CUMM (3.8-5.5); Red Cell Distribution Width 17.2 % (9.3-17.3); White Blood Count 8.8 T/CUMM (4-12)
[2021-01-17 06:14] LABS: Calcium 8.6 MG/DL (8.5-10.1); Osmolality,Calculated 275.8 MOS/KG (273-304); Potassium 3.9 MMOL/L (3.5-5.1)
[2021-01-17] MEDS: VITAMIN E 400 UNIT CAPSULE PO SCH (09:32)
[2021-01-17] MEDS: carvediloL 3.125 MG TABLET PO SCH ×2 (09:32→22:49)
[2021-01-17] MEDS: APIXABAN 2.5 MG TABLET PO SCH ×2 (09:32→22:49)
[2021-01-17] MEDS: PANTOPRAZOLE 40 MG TABLET PO SCH (09:32)
[2021-01-17] MEDS: ASPIRIN EC 81 MG TABLET PO SCH (09:32)
[2021-01-17] MEDS: FUROSEMIDE 40 MG/4 ML VIAL IV SCH ×2 (09:33→16:54)
[2021-01-17] MEDS: AMIODARONE INJ 450 MG in DEXTROSE 5% 241 ML IV SCH (16:54)
[2021-01-17] MEDS: SERTRALINE 50 MG TABLET PO SCH (22:49)
[2021-01-17] MEDS: CHOLECALCIFEROL 400 UNIT TABLET PO SCH (22:49)
[2021-01-17] MEDS: ATORVASTATIN 20 MG TABLET PO SCH (22:49)
[2021-01-18 04:46] LABS: Calcium 8.7 MG/DL (8.5-10.1); Osmolality,Calculated 279.5 MOS/KG (273-304); Potassium 3.5 MMOL/L (3.5-5.1)
[2021-01-18] MEDS: PANTOPRAZOLE 40 MG TABLET PO SCH (09:35)
[2021-01-18] MEDS: ASPIRIN EC 81 MG TABLET PO SCH (09:35)
[2021-01-18] MEDS: carvediloL 3.125 MG TABLET PO SCH ×2 (09:35→23:51)
[2021-01-18] MEDS: APIXABAN 2.5 MG TABLET PO SCH ×2 (09:36→23:51)
[2021-01-18] MEDS: FUROSEMIDE 40 MG/4 ML VIAL IV SCH ×2 (09:36→17:27)
[2021-01-18] MEDS: VITAMIN E 400 UNIT CAPSULE PO SCH (09:36)
[2021-01-18] MEDS: AMIODARONE INJ 450 MG in DEXTROSE 5% 241 ML IV SCH (09:36)
[2021-01-18] MEDS: CHOLECALCIFEROL 400 UNIT TABLET PO SCH (23:50)
[2021-01-18] MEDS: SERTRALINE 50 MG TABLET PO SCH (23:51)
[2021-01-18] MEDS: ATORVASTATIN 20 MG TABLET PO SCH (23:51)
[2021-01-19] MEDS: AMIODARONE INJ 450 MG in DEXTROSE 5% 241 ML IV SCH ×3 (00:55→16:01)
[2021-01-19 06:04] LABS: Basophils # 0.1 10*3/uL (0.0-0.2); Basophils % 0.7 % (0.0-0.8); Eosinophils # 0.4 10*3/uL (0.0-0.87); Eosinophils % 5.1 % (0.00-10.9); Hematocrit 32.1 VOL% (42.0-52.0); Hemoglobin 9.7 GM/DL (14.0-18.0); Immature Granulocytes % 0.4 %; Immature Granulocytes Absolute 0.03 #; Lymphocytes # 1.2 10*3/uL (1.4-4.0); Lymphocytes % 14.1 % (21.2-54.2); Mean Corpuscular HGB Conc 30.2 GM/DL (32-36); Mean Corpuscular Volume 93.6 FL (87-102); Mean Platelet Volume 10.1 FL (9.6-12.0); Monocytes % 9.5 % (1.7-12.7); Neutrophils % 70.2 % (38.7-73.9); Platelet Count 231 T/CUMM (130-400); Red Blood Count 3.43 MC/CUMM (3.8-5.5); White Blood Count 8.5 T/CUMM (4-12)
[2021-01-19 06:39] LABS: Calcium 8.9 MG/DL (8.5-10.1); Osmolality,Calculated 280.5 MOS/KG (273-304); Potassium 4.1 MMOL/L (3.5-5.1)
[2021-01-19 06:40] LABS: Risk Ratio 2.4; VLDL Cholesterol 14.6 MG/DL
[2021-01-19 08:55] LABS: Free T4 (Free Thyroxine) 1.15 NG/DL (0.76-1.46)
[2021-01-19] MEDS: APIXABAN 2.5 MG TABLET PO SCH ×2 (09:11→20:55)
[2021-01-19] MEDS: PANTOPRAZOLE 40 MG TABLET PO SCH (09:11)
[2021-01-19] MEDS: VITAMIN E 400 UNIT CAPSULE PO SCH (09:11)
[2021-01-19] MEDS: carvediloL 3.125 MG TABLET PO SCH ×2 (09:11→20:55)
[2021-01-19] MEDS: FUROSEMIDE 40 MG/4 ML VIAL IV SCH ×2 (09:11→15:40)
[2021-01-19] MEDS: ASPIRIN EC 81 MG TABLET PO SCH (09:11)
[2021-01-19] MEDS: SERTRALINE 50 MG TABLET PO SCH (20:55)
[2021-01-19] MEDS: CHOLECALCIFEROL 400 UNIT TABLET PO SCH (20:55)
[2021-01-19] MEDS: AMIODARONE 200 MG TABLET PO SCH (20:55)
[2021-01-19] MEDS: ATORVASTATIN 20 MG TABLET PO SCH (20:55)
[2021-01-20 05:56] LABS: Calcium 9.3 MG/DL (8.5-10.1); Osmolality,Calculated 278.7 MOS/KG (273-304); Potassium 3.6 MMOL/L (3.5-5.1)
[2021-01-20] MEDS: AMIODARONE INJ 450 MG in DEXTROSE 5% 241 ML IV SCH (06:24)
[2021-01-20] MEDS ORDERED: LEVOTHYROXINE 25 MCG TABLET PO SCH (06:30)
[2021-01-20 08:06] VITALS: BP 103/66
[2021-01-20 08:15] LABS: Basophils # 0.1 10*3/uL (0.0-0.2); Basophils % 0.7 % (0.0-0.8); Eosinophils # 0.4 10*3/uL (0.0-0.87); Eosinophils % 4.9 % (0.00-10.9); Hematocrit 36.1 VOL% (42.0-52.0); Hemoglobin 10.8 GM/DL (14.0-18.0); Immature Granulocytes % 0.5 %; Immature Granulocytes Absolute 0.04 #; Lymphocytes # 1.1 10*3/uL (1.4-4.0); Lymphocytes % 13.1 % (21.2-54.2); Mean Corpuscular HGB Conc 29.9 GM/DL (32-36); Mean Corpuscular Volume 93.8 FL (87-102); Mean Platelet Volume 10.1 FL (9.6-12.0); Monocytes % 8.9 % (1.7-12.7); Neutrophils % 71.9 % (38.7-73.9); Platelet Count 282 T/CUMM (130-400); Red Blood Count 3.85 MC/CUMM (3.8-5.5); Red Cell Distribution Width 17.1 % (9.3-17.3); White Blood Count 8.2 T/CUMM (4-12)
[2021-01-20] MEDS: ASPIRIN EC 81 MG TABLET PO SCH (08:33)
[2021-01-20] MEDS: FUROSEMIDE 40 MG/4 ML VIAL IV SCH (08:33)
[2021-01-20] MEDS: VITAMIN E 400 UNIT CAPSULE PO SCH (08:33)
[2021-01-20] MEDS: PANTOPRAZOLE 40 MG TABLET PO SCH (08:34)
[2021-01-20] MEDS: APIXABAN 2.5 MG TABLET PO SCH (08:34)
[2021-01-20] MEDS: AMIODARONE 200 MG TABLET PO SCH (08:34)
[2021-01-20] MEDS: carvediloL 3.125 MG TABLET PO SCH (08:35)
== END 2021-01-20 11:59 | disposition home health service (06) | DRG 291 ==
LOC: N.ED 16:50 → SUATTDRO 20:15 → N.EDINP 20:15 → N.TELEN 01-16 01:04
PROVIDERS: ADMIT Internal Medicine; ATTEND Internal Medicine